=== PATIENT | female | born 1945 | race Caucasian/White ===

== ENCOUNTER 2017-06-20 13:27 | Inpatient (IN) | payer OTHER ==
--- NOTE | 2017-06-20 15:26 | ED.PDOC ---
General ED Provider: Dr. CHRISTINE SCHULER Chief Complaint: Abnormal Labs Stated Complaint: Here from skilled nursing; Has low Potassium as noted on lab today. K+ was 2.7. Experienced confusion. Time Seen by Physician: 14:50 Mode of Arrival: Stretcher Information Source: Patient, Mcc, EMT Exam Limitations: No limitations Primary Care Provider: WAYNE CARRASCO Referred to ED by: PCP Nursing and Triage Documentation Reviewed and Agree: Yes Reviewed sepsis parameters & appropriate labs ordered?: Yes System Inflammatory Response Syndrome: Not Applicable Sepsis Protocol: For patient's 13 years and over: Temp is 96.8 and below OR 101 and greater Pulse >90 BPM Resp >20/minute Acutely Altered Mental Status Are patient's symptoms suggestive of a new infection, such as: -Pneumonia -Skin, Soft Tissue -Endocarditis -UTI -Bone, Joint Infection -Implantable Device -Acute Abdominal Infection -Wound Infection -Meningitis -Blood Stream Catheter Infection -Unknown System Inflammatory Response Syndrome: Not Applicable Miscellaneous Complaint Exam - Complex/Multi-System Complaint/Exam Symptoms Are: Still present Episodes Lasting: Hours Associated Signs and Symptoms: Reports: Confusion, Dizziness, Palpitations, Anticoagulation Therapy Related History: Recent Hospitilization (Total Hip ) Recent Echo/LV Function: No Respiratory Distress: None JVD Present: No Tachypnea Present: No Stridor Present: No Abdominal Findings: Present: Normal findings Review of Systems - Review Of Systems Constitutional: Reports: No symptoms, Malaise, Weakness Eyes: Reports: No symptoms Ears, Nose, Mouth, Throat: Reports: No symptoms Respiratory: Reports: No symptoms Cardiac: Reports: No symptoms GI: Reports: No symptoms : Reports: No symptoms Musculoskeletal: Reports: No symptoms, Other (recent hip fracture) Skin: Reports: No symptoms Neurological: Reports: No symptoms Endocrine: Reports: No symptoms Hematologic/Lymphatic: Reports: No symptoms All Other Systems: Other (hypokalemia) Past Medical History - Past Medical History Previously Healthy: Yes Endocrine: Reports: None Cardiovascular: Reports: Hypertension, Unknown Respiratory: Reports: None Hematological: Reports: None Gastrointestinal: Reports: None Genitourinary: Reports: None Neuro/Psych: Reports: None Musculoskeletal: Reports: Joint Pain Cancer: Reports: None Last Menstrual Period: hysterectomy - Surgical History General Surgical History: Reports: Other (total hip; mult hip surgeries) - Family History Family History: Reports: None - Social History Smoking Status: Never smoker Hx Substance Use: No Alcohol Screening: None Physical Exam - Physical Exam Appearance: Well-appearing, Thin Ill-appearing: None Pain Distress: None Eyes: LAURA, EOMI, Conjunctiva clear ENT: Ears normal, Nose normal, Oropharynx normal Neck: Supple Respiratory: Airway patent, Breath sounds clear Cardiovascular: RRR, Pulses normal, No rub GI/: Soft, Nontender, No masses Musculoskeletal: Normal strength, No edema, Limited ROM (Rt Hip) Skin: Warm, Dry Neurological: Sensation intact, Alert, Oriented Psychiatric: Affect appropriate, Mood appropriate Re-Evaluation - Re-Evaluation Time of Re-Evaluation: 18:30 Status: Improved Vital Signs Stable: Yes Appearance: NAD Lungs: Clear Skin: Warm and Dry Neuro: Alert and Oriented X3 CV: RRR Additional Comments: Receiving IV KCL ; Could not tolerate PO KCL/ Dr Carrasco wishes to admit Critical Care Note - Critical Care Note Total Time (mins): 0 Course - Course Hematology/Chemistry: 06/20/17 15:41 06/20/17 15:41 Orders, Labs, Meds: Lab Review 06/20/17 06/20/17 15:41 15:41 WBC 12.01 H RBC 3.62 L Hgb 11.6 L Hct 33.2 L MCV 91.7 MCH 32.0 H MCHC 34.9 RDW Coeff of Kimberly 12.9 Plt Count 427 Immature Gran % (Auto) 1.2 Neut % (Auto) 80.5 Lymph % (Auto) 8.7 L [place] % (Auto) 7.6 Eos % (Auto) 1.7 Baso % (Auto) 0.3 Immature Gran # (Auto) 0.1 Neut # (Auto) 9.7 H Lymph # (Auto) 1.1 [place] # (Auto) 0.9 Eos # (Auto) 0.2 Baso # (Auto) 0.0 Sodium 139 Potassium 2.7 L* Chloride 90 L Carbon Dioxide 37 H Anion Gap 14.7 BUN 14 Creatinine 1.06 Estimated GFR (MDRD) 51.00 BUN/Creatinine Ratio 13.20 Glucose 116 H Calcium 8.6 Magnesium 1.8 Total Bilirubin 0.7 AST 71 H ALT 26 Alkaline Phosphatase 87 Total Protein 6.9 Albumin 2.7 L Globulin 4.2 Albumin/Globulin Ratio 0.64 Orders Category Date Time Status ADMIT PATIENT INPATIENT .TO MEDSURG (MONITORED BED) ADMISSION 06/20/17 18: 14 Active TELEMETRY MONITORING TELE CARE 06/20/17 18:15 Active IV [ED IV/MEDIPORT/POWERPORT] .ONCE EMERGENCY 06/20/17 15:28 Active CBC W/ AUTO DIFF Stat LAB 06/20/17 15:41 Completed CMP [COMPREHENSIVE METABOLIC PANEL] Stat LAB 06/20/17 15:41 Completed MAGNESIUM Stat LAB 06/20/17 15:41 Completed 0.9 % Sodium Chloride [Saline Flush] MEDS 06/20/17 15:28 Active 1 syr IVF PRN PRN Potassium Chloride [K-Dur] MEDS 06/20/17 16:57 Discontinued 20 meq PO ONCE STA Potassium Chloride [Potassium Chloride Premix Run] 10 MEDS 06/20/17 16:59 Discontinued meq Premix 100 ml Water 1 bag IV ONCE Medications Generic Name Dose Route Start Last Admin Trade Name Freq PRN Reason Stop Dose Admin Sodium Chloride 1 syr 06/20/17 15:28 06/20/17 17:24 Saline Flush IVF 1 syr PRN PRN Administration To flush IV Discontinued Medications Generic Name Dose Route Start Last Admin Trade Name Freq PRN Reason Stop Dose Admin Potassium Chloride 10 meq/ 100 mls @ 100 mls/hr 06/20/17 16:59 06/20/17 17:50 Sterile Water IV 06/20/17 17:58 50 mls/hr ONCE STA Administration Potassium Chloride 20 meq 06/20/17 16:57 06/20/17 17:35 K-Dur PO 06/20/17 16:58 Not Given ONCE STA Vital Signs: Temp Pulse Resp BP Pulse Ox 06/20/17 17:01 79 119/40 L 06/20/17 13:28 97.7 F 83 16 107/37 L 97 Departure - Departure Time of Disposition: 19:30 Disposition: ADMITTED INPATIENT Discharge Problem: Hypokalemia Condition: Fair Pt referred to PMD for follow-up: Yes IPMP verified?: No Allergies/Adverse Reactions: Allergies codeine Adverse Reaction (Verified 06/20/17 13:48) Penicillins Adverse Reaction (Verified 06/20/17 13:48) Home Medications: Ambulatory Orders Apixaban [Eliquis] 2.5 mg PO BID 06/20/17 Dicyclomine HCl 10 mg PO BID 06/20/17 Fexofenadine HCl 180 mg PO DAILY PRN 06/20/17 Fluoxetine HCl 20 mg PO DAILY 06/20/17 Furosemide [Lasix Tab] 20 mg PO QDAC 06/20/17 Metoprolol Tartrate 50 mg PO DAILY 06/20/17 Multivitamin [One Daily Multivitamin] 1 tab PO DAILY 06/20/17 Oxybutynin Chloride [Ditropan Xl] 15 mg PO DAILY 06/20/17 Oxycodone HCl [Oxycodone] 5 mg PO Q4H PRN 06/20/17 Paroxetine HCl 40 mg PO DAILY 06/20/17 Disposition Discussed With: Patient (Admit per Dr Carrasco)
[2017-06-20] MEDS ORDERED: K-DUR PO STA (16:57)
[2017-06-20] MEDS ORDERED: POTASSIUM CHLORIDE PREMIX RUN 10 MEQ in PREMIX 100 ML WATER 1 BAG IV STA (16:59)
[2017-06-20 20:42] VITALS: BMI 24.3
[2017-06-20] MEDS ORDERED: POTASSIUM CHL 10% ORAL SOL PO STA ×3 (21:04→23:21)
[2017-06-20] MEDS ORDERED: FEXOFENADINE HCL 180 MG PO PRN (21:18)
[2017-06-20] MEDS ORDERED: POTASSIUM CHLORIDE 20 MEQ VIAL-ADDITIVE ONLY IV ONE (21:19)
[2017-06-20] MEDS: SODIUM CHLORIDE IV SCH (21:28)
[2017-06-20] MEDS: POTASSIUM CHLORIDE IV SCH (21:28)
[2017-06-20] MEDS: ADDITIVE ONLY IV SCH (21:28)
[2017-06-20] MEDS: OXYCODONE PO PRN (21:51)
[2017-06-21] MEDS: OXYCODONE PO PRN ×3 (03:30→19:26)
[2017-06-21] MEDS ORDERED: POTASSIUM CHLORIDE 20 MEQ VIAL-ADDITIVE ONLY IV ONE (03:36)
[2017-06-21] MEDS: LASIX TAB PO SCH (06:35)
[2017-06-21] MEDS ORDERED: CLARITIN PO PRN (07:35)
[2017-06-21] MEDS: BENTYL PO SCH ×2 (08:33→21:03)
[2017-06-21] MEDS: DITROPAN XL PO SCH (08:33)
[2017-06-21] MEDS: MULTIVITAMIN TABLET PO SCH (08:34)
[2017-06-21] MEDS: PAXIL PO SCH (08:34)
[2017-06-21] MEDS: PROZAC PO SCH (08:34)
[2017-06-21] MEDS: ELIQUIS PO SCH ×2 (08:36→21:03)
[2017-06-21] MEDS ORDERED: NON-FORMULARY MEDICATION (Oxybutynin Chloride [Ditropan Xl] 15 MG) PO SCH (09:00)
[2017-06-21] MEDS ORDERED: LOPRESSOR PO SCH (09:00)
[2017-06-21] MEDS ORDERED: NON-FORMULARY MEDICATION (Apixaban [Eliquis] 2.5 MG) PO SCH (09:00)
[2017-06-21] MEDS ORDERED: PAROXETINE HCL 40 MG PO SCH (09:00)
--- NOTE | 2017-06-21 10:42 | PCM.PROG ---
Attending Provider: ATTENDING PROVIDER: Dr. WAYNE CARRASCO This patient is seen with Rosa Elena Franklin, Nurse Practitioner. DATE OF SERVICE: 06/21/17 SUBJECTIVE: This 72 year old WHITE/ F was hospitalized 06/20/17. The patient is lying in bed resting comfortably. The patient was sent from [facility] yesterday. She has started running low grade fever overnight. Potassium is improved. Will do further testing for fever today. REVIEW OF SYSTEMS: CONSTITUTIONAL: Low grade fever. Weakness. No night sweats. No malaise, lethargy. No chills. HEENT: Eyes: No visual changes. No eye pain. No eye discharge. ENT: No runny nose. No epistaxis. No sinus pain. No odynophagia. No congestion. RESPIRATORY: No cough, no congestion. No hemoptysis. No shortness of breath. CARDIOVASCULAR: No angina symptoms. No CHF symptoms. No atypical chest pain for CAD. No palpitations. No orthopnea.. GASTROINTESTINAL: No abdominal pain. No nausea or vomiting. No diarrhea or constipation. No hematemesis. No hematochezia. GENITOURINARY: No urgency. No frequency. No dysuria. No hematuria. No obstructive symptoms. No discharge. No pain. No significant abnormal bleeding. MUSCULOSKELETAL: No musculoskeletal pain; no joint swelling. NEUROLOGICAL: Awake, alert, oriented to time, place and person. No headache. No neck pain. No syncope. No seizures. No dizziness. PSYCHIATRIC: Not anxious. No depression. No suicidal thoughts. No homicidal thoughts. SKIN: No rash. No lesions. No wounds. ENDOCRINE: No unexplained weight loss. No weight gain. HEMATOLOGIC/LYMPHATIC: No anemia. No purpura. No petechiae. No prolonged or excessive bleeding. No palpable lymph nodes. PHYSICAL EXAMINATION: GENERAL: The patient is resting comfortably in bed in no distress. VITAL SIGNS: Temperature 99.4 F, Pulse 115, Respiratory Rate 16, BP 124/60, Pulse Ox 95% HEENT: Head normocephalic, atraumatic. Eyes: Extraocular muscles are intact. Pupils are equal, round and reactive to light and accommodation. Ears: No lesions. Nose appeared normal. Throat: No exudate or erythema. NECK: Supple. No JVD, no carotid bruit. No lymphadenopathy or thyromegaly. LUNGS: Diminished breath sounds. Clear to auscultation. Percussion note normal. Chest symmetrical. HEART: Sinus tachycardia. S1, S2, no S3. No murmurs. No cyanosis or clubbing. No ascites. Pulses: Dorsalis pedis and posterior tibial pulses +1 to +2 both sides. ABDOMEN: Soft. Non-tender. Bowel sounds active. No CVA tenderness. No mass felt. EXTREMITIES: No edema. Full range of motion of all extremities, equal. NEUROLOGIC: No focal deficit. Cranial nerves II through XII are grossly intact. No headache, no double vision or headache. SKIN: Not dry. Intact. Turgor-normal. LYMPHATIC: No palpable lymph nodes/no lymphedema. MUSCULOSKELETAL: Normal joints with no swelling. Muscle tone is normal. LAB REVIEW: 06/21/17 05:00 06/21/17 05:00 06/21/17 05:00: Sodium 139, Potassium 4.2, Chloride 96 L, Carbon Dioxide 35 H, Anion Gap 12.2, BUN 13, Creatinine 1.07, Estimated GFR (MDRD) 50.00, BUN/ Creatinine Ratio 12.14, Glucose 112, Calcium 8.6, Total Bilirubin 0.7, AST 67 H , ALT 26, Alkaline Phosphatase 79, Total Protein 6.2, Albumin 2.4 L, Globulin 3.8, Albumin/Globulin Ratio 0.63 06/21/17 05:00: WBC 9.21, RBC 3.41 L, Hgb 10.7 L, Hct 32.2 L, MCV 94.4, MCH 31.4 H, MCHC 33.2, RDW Coeff of Kimberly 13.0, Plt Count 417, Immature Gran % (Auto) 1.3, Neut % (Auto) 73.3, Lymph % (Auto) 12.2, [place] % (Auto) 8.8, Eos % (Auto) 4.1, Baso % (Auto) 0.3, Immature Gran # (Auto) 0.1, Neut # (Auto) 6.8, Lymph # ( Auto) 1.1, [place] # (Auto) 0.8, Eos # (Auto) 0.4, Baso # (Auto) 0.0 ASSESSMENT: 1. HALLUCINATIONS/MENTAL STATUS CHANGE 2. HYPOKALEMIA IMPROVED 3. FEVER 4. S/P LEFT HIP REPAIR PLAN: 1. Rapid flu 2. Blood cultures 3. UA 4. Chest x-ray 5. Bilateral venous scan Plan and coordination of the patient's care discussed in the presence of Triage Specialist and nurse. CONDITION: Stable SCRIBED BY: Jeovany PINEDA scribed while in presence of service performed by Dr. Carrasco/Rosa Elena Franklin APRN on 06/21/17 ([id number])
--- NOTE | 2017-06-21 11:03 | DI ---
Exam: Chest one-view History: Cough and shortness of breath FINDINGS: Normal cardiomediastinal contours. Normal pulmonary vasculature. Atherosclerotic calcifi cation of the aorta. No acute chest wall abnormality. Impression: No acute cardiopulmonary disease.
--- NOTE | 2017-06-21 14:54 | US ---
EXAM: Left lower extremity venous Doppler History: Left lower extremity pain and swelling with warmth Technique: Multiple sonographic images through the left lower extremity were obtained. Color duplex Doppler was used to interrogate vascular flow. Findings: The left common femoral, greater saphenous, profunda, superficial femoral, popliteal, larry carol, posterior tibial and anterior tibial veins demonstrate spontaneous flow with normal compression and normal augmentation. Impression: No sonographic evidence for deep venous thrombosis.
[2017-06-22] MEDS: OXYCODONE PO PRN ×5 (00:58→21:46)
[2017-06-22] MEDS ORDERED: GI COCKTAIL PO STA (04:44)
[2017-06-22] MEDS: POTASSIUM CHLORIDE IV SCH ×5 (04:54→23:07)
[2017-06-22] MEDS: ADDITIVE ONLY IV SCH ×5 (04:54→23:07)
[2017-06-22] MEDS: SODIUM CHLORIDE IV SCH ×5 (04:54→23:07)
[2017-06-22] MEDS: LASIX TAB PO SCH (05:31)
[2017-06-22] MEDS: PROTONIX PO SCH (08:26)
[2017-06-22] MEDS: LOPRESSOR PO SCH ×2 (08:40→17:29)
[2017-06-22] MEDS ORDERED: POTASSIUM CHL 10% ORAL SOL PO SCH (09:00)
[2017-06-22] MEDS ORDERED: LOPRESSOR PO SCH (09:00)
[2017-06-22] MEDS: MULTIVITAMIN TABLET PO SCH (09:50)
[2017-06-22] MEDS: DITROPAN XL PO SCH (09:51)
[2017-06-22] MEDS: BENTYL PO SCH ×2 (09:51→21:34)
[2017-06-22] MEDS: PROZAC PO SCH (09:53)
[2017-06-22] MEDS: PAXIL PO SCH (09:54)
[2017-06-22] MEDS: ELIQUIS PO SCH ×2 (09:57→21:34)
--- NOTE | 2017-06-22 15:21 | RS.OTINEVL ---
Subjective - Patient information Date of Evaluation: 06/22/17 Date of Arrival on Unit: 06/21/17 Admitted From:: Facility Transfer Diagnosis: Left hip surgery Usual Living Arrangement: Alone Living Arrangement Comments: Pt lives alone and is trying to get to move to [place]. 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 Pt is a stand pivot transfer. Interventions - ROM Right Upper Extremity AROM: WFL's Left Upper Extremity AROM: Slight limitation - Strength Right Upper Extremity Strength: Normal Left Upper Extremity Strength: Mild Weakness - Sensation Right Upper Extremity Sensation: Intact/Normal Comments:: Pt has intermittent tender point in the LUE scapula Balance - Sitting Balance Static Sitting Balance: Fair Dynamic Sitting Balance: Fair - Standing Balance Static Standing Balance: Fair Dynamic Standing Balance: Fair ADL Skills - Self Feeding Self Feeding: Independent - Grooming Grooming: Min Assist - Bathing Bathing UE: Supervision Bathing LE: Min Assist - Dressing Dressing UE: Independent Dressing LE: Mod Assist - Toilet Management Toileting Management: Mod Assist Functional Mobility - Bed Mobility Rolling R/L: Min Assist Scooting: Min Assist Supine to Sit: Min Assist Sit to Supine: Min Assist - Transfers Sit to Stand: Mod Assist Stand to Sit: Mod Assist Stand Pivot Transfers: Mod Assist, 2 person assist - Ambulation Weight Bearing Status: NWB Assistive Device Used: Rolling Walker Assistance needed with Ambulation: Mod Assist, 2 person assist - Safety Awareness Safety Awareness: Good ANNALISE INDEX SCORE: . Additional Treatment Performed - Time with patient Total treatment time: 20 Activities Patient Interests:: Reading Books/Magazines, Watching Television, Puzzles/Games Patient Education Patient Education: Education of diagnosis, Body/Joint mechanics, Home Exercise Program, Education of Plan of Care Teaching Recipient: Patient Teaching Methods: Discussion Assessment Problem List:: Decreased level of function, Requires training/education, Decreased safety/Risk of falls, Weakness Rehab Potential: Good Further Therapy Indicated?: Yes Evaluation Complexity: HISTORY: Medium, EXAM OF BODY SYSTEMS: Medium, CLINICAL DECISION MAKING: Medium Short Term Goals - Goals GOAL 1: Pt to complete supine to sit Minimal assistance. Goal to be met by: 06/29/17 GOAL 2: Pt to tolerate toilet transfers CGA with RW. Goal to be met by: 06/29/17 GOAL 3: Pt to complete self care CGA. Goal to be met by: 07/06/17 GOAL 4: Pt LUE shoulder sorenesss would decrease to 0/10. Veneer Taper Goals GOAL 1: Pt to complete supine to sit Minimal assistance. Goal to be met by: 07/06/17 GOAL 2: Pt to tolerate toilet transfers CGA with RW. Goal to be met by: 07/06/17 GOAL 3: Pt to complete self care Modified Ind. Goal to be met by: 07/06/17 Plan Plan of Care: Therapeutic EX, Neuromuscular Re-Educ, Therapeutic Activity, Self- Care/Home Management Modalities: Ultrasound, Ultrasound Combination, Electrical Stimulation Frequency of Treatment: 1-2 X day, as tolerated Duration of Treatment: 2 Weeks Anticipated [facility]charge Dest[facility] Has the Physician been added for Co-signature?: Yes
--- NOTE | 2017-06-22 15:32 | HP ---
DATE OF SERVICE: 06/20/17 REASON FOR HOSPITALIZATION/HISTORY OF PRESENT ILLNESS: 72 year old white female who is a new patient to us. She is a resident of [facility], she arrived there on 06/14/17 after having a complete left total hip replacement. The [facility] called and stated that she was experiencing some increasing confusion and hallucinations today and we have sent her to the emergency room for evaluation. PAST MEDICAL HISTORY: Anxiety Depression Hypertension Leg edema Dementia Urinary urgency Osteoarthritis PAST SURGICAL HISTORY: Hysterectomy Left total hip Right knee Cholecystectomy Hemorrhoidectomy Right hip REVIEW OF SYSTEMS: CONSTITUTIONAL: No night sweats. Malaise and weaknes. No fever or chills. HEENT: Eyes: No visual changes. No eye pain. No eye discharge. ENT: No runny nose. No epistaxis. No sinus pain. No sore throat. No odynophagia. No ear pain. No congestion. RESPIRATORY: No cough, no congestion. No hemoptysis. No shortness of breath. CARDIOVASCULAR: No angina symptoms. No CHF symptoms. No atypical chest pain for CAD. No palpitations. No orthopnea. GASTROINTESTINAL: No abdominal pain. No nausea or vomiting. No diarrhea or constipation. No hematemesis. No hematochezia. GENITOURINARY: No urgency. No frequency. No dysuria. No hematuria. No obstructive symptoms. No discharge. No pain. No significant abnormal bleeding. MUSCULOSKELETAL: No musculoskeletal pain. No joint swelling. No arthritis. NEUROLOGICAL: No headache. No neck pain. No syncope. No seizures. No dizziness. Confusion. PSYCHIATRIC: Not anxious. No depression. No suicidal thoughts. No homicidal thoughts. SKIN: No rash. No lesions. No wounds. Incision left hip otherwise normal. ENDOCRINE: No unexplained weight loss. No weight gain. HEMATOLOGIC/LYMPHATIC: No anemia. No purpura. No petechiae. No prolonged or excessive bleeding. No palpable lymph nodes. PERSONAL/FAMILY/SOCIAL HISTORY: The patient is single. She is a resident of the [facility] for rehabilitation. No alcohol and tobacco use. MEDICATIONS: Fluxetine 20mg PO daily Eliquis 2.5mg Po twice a day Paroxetine 40mg PO daily Metoprolol 50mg PO daily Oxycodone 5mg Po Q 4 hours PRN Fexofenadine 180mg PO daily PRN Dicyclomine 10mg PO twice a day Ditropan XL 15mg PO daily Multivitamin one tablet PO daily Lasix 20mg PO QDAC ALLERGIES: Codeine Penicillins PHYSICAL EXAMINATION: GENERAL: The patient is , lying/sitting in bed in no distress. VITAL SIGNS: Temperature 97.7, heart rate 83, blood pressure 107/37, pulse ox 97%. HEENT: Head normocephalic, atraumatic. Eyes: Extraocular muscles are intact. Pupils are equal, round and reactive to light and accommodation. Ears: No lesions. Nose appeared normal. Throat: No exudate or erythema. NECK: Supple. No JVD, no carotid bruit. No lymphadenopathy or thyromegaly. LUNGS: Diminished breath sounds bilaterally. Clear to auscultation. Percussion note normal. Chest symmetrical. HEART: S1, S2, no S3. No murmurs. No cyanosis or clubbing. No ascites. Pulses: Dorsalis pedis and posterior tibial pulses +1 to +2 both sides. Sinus tachycardia. ABDOMEN: Soft. Nontender. Bowel sounds active. No CVA tenderness. No mass felt. EXTREMITIES: No leg edema. Full range of motion of all extremities, equal. Deyvi intact posterior left hip, no signs, symptoms of infection. NEUROLOGIC: No focal deficit. Cranial nerves II through XII are grossly intact. No headache, no double vision or headache. SKIN: Not dry. Intact. Turgor - normal. LYMPHATIC: No palpable lymph nodes/no lymphedema. MUSCULOSKELETAL: Normal joints with no swelling. Muscle tone is normal. LABS: WBC 12.01, hgb 11.6, hct 33.2, plt count 427, sodium 139, potassium 2.7, chloride 90, carbon dioxide 37, BUN 14, creatinine 1.06, calcium 8.6, AST 71, ALT 26, Alkaline phosphatase 87, total protein 6.9. ASSESSMENT: 1. Acute hypokalemia status post left hip replacement 2. Fever 3. Acute confusion PLAN: 1. Admit as an inpatient 2. CBC and CMP daily 3. The patient is to have 4 rounds of 40meq and 500cc bags IV of Potassium 4. Routine Telemetry orders 5. Continue home medications 6. Due to fever will do U/A 7. Chest x-ray 8. Venous scan of both lower extremities 9. Blood cultures 10. Regular diet TIME SPENT: More than [address] [facility]
--- NOTE | 2017-06-22 15:53 | RS.PTINEVL ---
Subjective - Patient information Date of Evaluation: 06/22/17 Date of Arrival on Unit: 06/20/17 Admitted From:: Long Term Diagnosis: hypokalemia, s/p L hip acetabular reconstruction w patient matched implant Usual Living Arrangement: Alone Living Arrangement Comments: prior to surgery on 06/09/17 pt lived alone with some assist from friends and family. pt lives in split level home with 1 step into kitchen and 2 steps into living room. pt amb with rwx since first surgery 4 yrs ago. 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 on 01/14/12 Medications: see chart Subjective Information/ Patient Comments:: pt states she is having new pain in area of tibial plateau with min edema and bruising noted - Level of function Prior to this admission, the patient could do the following:: Partially Dependent Ambulation Abilities prior to this admission: prior to sx pt amb with rwx, since sx pt has only been able to transfer TWB on LLE Current Level of Function: Partially Dependent Current Equipment Used at Home: shower chair, raised chair, 2 walkers, Pain Assessement - Location L hip Description: Sharp, Aching Intensity: 6 Pain Behavior: Facial Grimacing Pain Aggravating Factors: Changing Position, Exercise/Activity Pain Alleviating Factors: Ice, Medication Interventions - Objective Patient Orientation: Person, Place, Time, Situation Current Interventions: IV's, Telemetry Observation: min edema LLE especially in area of tibial plateau. Range of Motion - ROM Right Upper Extremity AROM: WFL's Left Upper Extremity AROM: WFL's Right Lower Extremity AROM: WFL's Left Lower Extremity AROM: Moderate limitation (L hip limited due to THR precautions) Muscle Strength - Muscle Strength Right Upper Extremity Strength: Mild Weakness (grossly 4/5) Left Upper Extremity Strength: Mild Weakness (grossly 4/5) Right Lower Extremity Strength: Mild Weakness (hip flex 4/5, knee flex/ext 4+/5 , ankle DF/PF 4+/5) Left Lower Extremity Strength: Mild Weakness (L hip not MMT due to THR precautions, knee flex/ext atleast 3/5 as noted by ROM, not tested due to pain, ankle DF/PF 0/5 due to foot drop from previous sx) Sensation - Sensation Right Upper Extremity Sensation: Impaired (reports occasional n/t B hands longstanding) Left Upper Extremity Sensation: Impaired (reports occasional n/t B hands longstanding) Right Lower Extremity Sensation: Intact/Normal Left Lower Extremity Sensation: Impaired (n/t LLE) Palpation Palpation Findings: Tenderness Comments:: L tibial plateau Balance - Sitting Balance and Reactions Static Sitting Balance: Good Dynamic Sitting Balance: Good Sitting Equilibrium Reactions: Within Normal Limits Left, Within Normal Limit Right Sitting Protective Reactions: Within Normal Limits Left, Within Normal Limit Right - Standing Balance and Reactions Static Standing Balance: Fair Dynamic Standing Balance: Poor - Comments Balance Assessment Comments: pt able to maintain dyn sitting balance reaching across midline and to challenges to balance. pt also with no LOB while transferring maintaing TWB LLE (pt does NWB due to foot drop in L) Functional Mobility - Bed Mobility Rolling R/L: Mod Assist Supine to Sit: Mod Assist, 1 person assist - Transfers Sit to Stand: Min Assist, Mod Assist, 1 person assist Stand to Sit: Min Assist, 1 person assist Stand Pivot Transfers: Min Assist, Mod Assist, 1 person assist - Safety Awareness Safety Awareness: Good ANNALISE INDEX SCORE: n/a Ambulation - Ambulation Weight Bearing Status: TDWB/TTWB Assistive Device Used: Standard Walker Orthotic/Prosthetic Device: No Distance: 2-3 steps to chair, TWB LLE Assistance needed with Ambulation: Min Assist, 1 person assist Factors Affecting Ambulation: WB Status, Decreased Balance, Pain, Weakness, Limited Endurance Treatment time - Time with patient Total treatment time: 29 Patient Education - Education Patient Education: Home Exercise Program, Activity Modification, Education of Plan of Care Teaching Recipient: Patient Teaching Methods: Discussion, Demonstration (pt demonstrated understanding of TWB LLE) Assessment - Assessment Problem List:: Decreased level of function, Requires training/education, Decreased safety/Risk of falls, Weakness, Pain limits previous level of function Rehab Potential: Good Further Therapy Indicated?: Yes Evaluation Complexity: HISTORY: Medium (HTN, complicated ortho hx, THR), EXAM OF BODY SYSTEMS: Medium (pain, strength, balance, gait, endurance), CLINICAL PRESENTATION: Medium (evolving), CLINICAL DECISION MAKING: Medium Short Term Goals GOAL #1: pt demonstrate rolling and scooting in bed with CGA Goal to be met by: 06/25/17 GOAL #2: pt transfer sup to/from sit to/from stand with min x 1 Goal to be met by: 06/25/17 GOAL #3: pt transfer stand pivot to BSC/chair TWB LLE with min x 1 Goal to be met by: 06/25/17 GOAL #4: pt propell w/c 200ft using BUE and RLE to allow for improved mobility Goal to be met by: 06/25/17 Senior Living Goals GOAL #1: pt independent with rolling and scooting up in bed Goal to be met by: 06/28/17 GOAL #2: pt transfer sup to/from sit SBA, sit to/from stand CGA Goal to be met by: 06/28/17 GOAL #3: pt amb 10ft with wx TWB LLE with min x 1 to improve mobility in pt room. Goal to be met by: 06/28/17 Plan Plan of Care: Therapeutic EX, Therapeutic Activity Modalities: Cold Pack/Cryotherapy Other:: gait training STRICT TWB LLE/ EDUCATE ON STRICT THR PRECAUTIONS Frequency of Treatment: 1-2 X day, as tolerated Duration of Treatment: 6 days Anticipated Discharge Destination: [facility] Has the Physician been added for Co-signature?: Yes
[2017-06-22] MEDS: TORADOL IVP PRN (20:14)
[2017-06-23] MEDS: OXYCODONE PO PRN ×4 (05:43→22:05)
[2017-06-23] MEDS: PROTONIX PO SCH (05:43)
[2017-06-23] MEDS: LASIX TAB PO SCH (05:44)
[2017-06-23] MEDS: DITROPAN XL PO SCH (08:30)
[2017-06-23] MEDS: LOPRESSOR PO SCH ×2 (08:30→17:04)
[2017-06-23] MEDS: BENTYL PO SCH ×2 (08:30→21:55)
[2017-06-23] MEDS: MULTIVITAMIN TABLET PO SCH (08:30)
[2017-06-23] MEDS: PAXIL PO SCH (08:31)
[2017-06-23] MEDS: PROZAC PO SCH (08:31)
[2017-06-23] MEDS: ELIQUIS PO SCH ×2 (08:31→21:55)
--- NOTE | 2017-06-23 08:52 | PCM.PROG ---
Attending Provider: ATTENDING PROVIDER: Dr. WAYNE CARRASCO This patient is seen with Rosa Elena Franklin, Nurse Practitioner. DATE OF SERVICE: 06/22/17 SUBJECTIVE: This 72 year old WHITE/ F was hospitalized 06/20/17. Lying in bed, alert. Potassium improved today. Chest x-ray negative yesterday. She still had low grade fever last night. REVIEW OF SYSTEMS: CONSTITUTIONAL: Leg weakness. No night sweats. No fatigue, malaise, lethargy. No fever or chills. HEENT: Eyes: No visual changes. No eye pain. No eye discharge. ENT: No runny nose. No epistaxis. No sinus pain. No odynophagia. No congestion. RESPIRATORY: No cough, no congestion. No hemoptysis. No shortness of breath. CARDIOVASCULAR: No angina symptoms. No CHF symptoms. No atypical chest pain for CAD. No palpitations. No orthopnea.. GASTROINTESTINAL: Positive for heartburn last night. No abdominal pain. No nausea or vomiting. No diarrhea or constipation. No hematemesis. No hematochezia. GENITOURINARY: No urgency. No frequency. No dysuria. No hematuria. No obstructive symptoms. No discharge. No pain. No significant abnormal bleeding. MUSCULOSKELETAL: No musculoskeletal pain; no joint swelling. NEUROLOGICAL: Awake, alert, oriented to time, place and person. No headache. No neck pain. No syncope. No seizures. No dizziness. PSYCHIATRIC: Not anxious. No depression. No suicidal thoughts. No homicidal thoughts. SKIN: No rash. No lesions. Left hip incision. ENDOCRINE: No unexplained weight loss. No weight gain. HEMATOLOGIC/LYMPHATIC: No anemia. No purpura. No petechiae. No prolonged or excessive bleeding. No palpable lymph nodes. PHYSICAL EXAMINATION: GENERAL: The patient is awake, alert and oriented, lying in bed in no distress. VITAL SIGNS: Temperature 98.8 F, Pulse 91, Respiratory Rate 20, BP 125/71, Pulse Ox 97% HEENT: Head normocephalic, atraumatic. Eyes: Extraocular muscles are intact. Pupils are equal, round and reactive to light and accommodation. Ears: No lesions. Nose appeared normal. Throat: No exudate or erythema. NECK: Supple. No JVD, no carotid bruit. No lymphadenopathy or thyromegaly. LUNGS: Diminished breath sounds. Clear to auscultation. Percussion note normal. Chest symmetrical. HEART: S1, S2, no S3. No murmurs. No cyanosis or clubbing. No ascites. Pulses: Dorsalis pedis and posterior tibial pulses +1 to +2 both sides. ABDOMEN: Soft. Non-tender. Bowel sounds active. No CVA tenderness. No mass felt. EXTREMITIES: No edema. Full range of motion of all extremities, equal. Negative Dylan's sign. NEUROLOGIC: No focal deficit. Cranial nerves II through XII are grossly intact. No headache, no double vision or headache. SKIN: Warm, dry. Turgor-normal. Left hip incision clean, dry and intact. No sign of infection. LYMPHATIC: No palpable lymph nodes/no lymphedema. MUSCULOSKELETAL: Normal joints with no swelling. Muscle tone is normal. LAB REVIEW: 06/22/17 05:30 06/22/17 05:30 06/22/17 05:30: Sodium 138, Potassium 4.5, Chloride 96 L, Carbon Dioxide 34 H, Anion Gap 12.5, BUN 16, Creatinine 1.17, Estimated GFR (MDRD) 45.00, BUN/ Creatinine Ratio 13.67, Glucose 105, Calcium 8.8, Total Bilirubin 0.5, AST 71 H , ALT 33, Alkaline Phosphatase 81, Total Protein 5.9, Albumin 2.3 L, Globulin 3.6, Albumin/Globulin Ratio 0.64 06/22/17 05:30: WBC 8.26, RBC 3.30 L, Hgb 10.2 L, Hct 31.7 L, MCV 96.1, MCH 30.9 , MCHC 32.2, RDW Coeff of Kimberly 13.1, Plt Count 409, Immature Gran % (Auto) 2.2, Neut % (Auto) 69.0, Lymph % (Auto) 13.7, [place] % (Auto) 8.1, Eos % (Auto) 6.5, Baso % (Auto) 0.5, Immature Gran # (Auto) 0.2, Neut # (Auto) 5.7, Lymph # (Auto ) 1.1, [place] # (Auto) 0.7, Eos # (Auto) 0.5, Baso # (Auto) 0.0 06/21/17 12:35: Influ A Molecular Assay Negative by naat, Influ B Molecular Assay Negative by naat ASSESSMENT: 1. HALLUCINATIONS/MENTAL STATUS CHANGE, RESOLVED 2. GERD 3. TACHYCARDIA 4. HYPOKALEMIA IMPROVED 5. FEVER 6. S/P LEFT HIP REPAIR PLAN: 1. Protonix 40 mg daily 2. UA today 3. Lopressor 25 b.i.d. Plan and coordination of the patient's care discussed in the presence of Health Tech and nurse. CONDITION: Stable SCRIBED BY: TAYLOR ZARATE Mobile Ui Developer scribed while in presence of service performed by Dr. Carrasco/Rosa Elena Franklin APRN on 06/22/17 ([id number])
--- NOTE | 2017-06-23 10:41 | PN ---
DATE OF SERVICE: 06/22/17 SUBJECTIVE: A workup for low grade fever and so far it is negative. The patient's U/A still pending. The patient's left hip scar and incision looks clear. No evidence of infection. No evidence of thrombophlebitis. The patient has left foot drop for last 6 years. The patient had hip surgery by Dr. Weiner 6-7 years ago. The left hip was done again by Dr. Myriam Marques three years ago and then again reoperated a couple of weeks ago by Dr. Myriam Marques. The patient developed complication from that and has developed foot drop. The patient cardiovascular status is stable with no evidence of CHF. The patient was seen and examined with Nurse practitioner. TIME SPENT: More than 30 minutes. Plan and coordination of the patient's care discussed in the presence of nurse. JOSEPHINE
[2017-06-23] MEDS: TORADOL IVP PRN ×2 (10:43→19:15)
--- NOTE | 2017-06-23 11:00 | PCM.PROG ---
Attending Provider: ATTENDING PROVIDER: Dr. WAYNE CARRASCO DATE OF SERVICE: 06/23/17 SUBJECTIVE: This 72 year old WHITE/ F was hospitalized 06/20/17. The patient is seen today, hypokalemia has resolved. Incision is clean, measures a foot long left hip area posteriorly with no evidence of any redness or drainage and is dry. No pain at all in the hip area. The pain is in left bautista area. She has pain off and on with history of left foot drop. REVIEW OF SYSTEMS: CONSTITUTIONAL: No night sweats. No fatigue, malaise, lethargy. No fever or chills. HEENT: Eyes: No visual changes. No eye pain. No eye discharge. ENT: No runny nose. No epistaxis. No sinus pain. No odynophagia. No congestion. RESPIRATORY: No cough, no congestion. No hemoptysis. No shortness of breath. CARDIOVASCULAR: No angina symptoms. No CHF symptoms. No atypical chest pain for CAD. No palpitations. No orthopnea.. GASTROINTESTINAL: No abdominal pain. No nausea or vomiting. No diarrhea or constipation. No hematemesis. No hematochezia. GENITOURINARY: No urgency. No frequency. No dysuria. No hematuria. No obstructive symptoms. No discharge. No pain. No significant abnormal bleeding. MUSCULOSKELETAL: No musculoskeletal pain; no joint swelling. NEUROLOGICAL: Awake, alert, oriented to time, place and person. No headache. No neck pain. No syncope. No seizures. No dizziness. PSYCHIATRIC: Not anxious. No depression. No suicidal thoughts. No homicidal thoughts. SKIN: No rash. No lesions. Incision left hip area. ENDOCRINE: No unexplained weight loss. No weight gain. HEMATOLOGIC/LYMPHATIC: No anemia. No purpura. No petechiae. No prolonged or excessive bleeding. No palpable lymph nodes. PHYSICAL EXAMINATION: GENERAL: The patient is awake, alert and oriented, lying in bed in no distress. VITAL SIGNS: Temperature 98.4 F, Pulse 77, Respiratory Rate 16, BP 108/59, Pulse Ox 95% HEENT: Head normocephalic, atraumatic. Eyes: Extraocular muscles are intact. Pupils are equal, round and reactive to light and accommodation. Ears: No lesions. Nose appeared normal. Throat: No exudate or erythema. NECK: Supple. No JVD, no carotid bruit. No lymphadenopathy or thyromegaly. LUNGS: Clear to auscultation. Percussion note normal. Chest symmetrical. HEART: S1, S2, no S3. No murmurs. No cyanosis or clubbing. No ascites. Pulses: Dorsalis pedis and posterior tibial pulses +1 to +2 both sides. ABDOMEN: Soft. Non-tender. Bowel sounds active. No CVA tenderness. No mass felt. EXTREMITIES: No edema. Full range of motion of all extremities, equal. NEUROLOGIC: No focal deficit. Cranial nerves II through XII are grossly intact. No headache, no double vision or headache. SKIN: Warm and dry. Intact. Turgor-normal. Incision left hip area is clean, dry and intact. No drainage, no sign of infection. LYMPHATIC: No palpable lymph nodes/no lymphedema. MUSCULOSKELETAL: Normal joints with no swelling. Muscle tone is normal. LAB REVIEW: 06/23/17 04:30 06/23/17 04:30 06/23/17 04:30: Sodium 137, Potassium 5.2 H, Chloride 96 L, Carbon Dioxide 34 H , Anion Gap 12.2, BUN 24 H, Creatinine 1.48 H, Estimated GFR (MDRD) 35.00, BUN/ Creatinine Ratio 16.21, Glucose 100, Calcium 8.9, Total Bilirubin 0.5, AST 61 H , ALT 30, Alkaline Phosphatase 81, Total Protein 5.8, Albumin 2.3 L, Globulin 3.5, Albumin/Globulin Ratio 0.66 06/23/17 04:30: WBC 6.82, RBC 3.19 L, Hgb 9.9 L, Hct 30.5 L, MCV 95.6, MCH 31.0 , MCHC 32.5, RDW Coeff of Kimberly 12.8, Plt Count 391, Immature Gran % (Auto) 2.6, Neut % (Auto) 61.5, Lymph % (Auto) 17.0, [place] % (Auto) 10.1 H, Eos % (Auto) 8.2 H, Baso % (Auto) 0.6, Immature Gran # (Auto) 0.2, Neut # (Auto) 4.2, Lymph # ( Auto) 1.2, [place] # (Auto) 0.7, Eos # (Auto) 0.6, Baso # (Auto) 0.0 06/22/17 16:50: Urine Color Yellow, Urine Clarity Clear, Urine pH 7.0, Ur Specific [employer] 1.015, Urine Protein Negative, Urine Glucose (UA) Negative, Urine Ketones Negative, Urine Blood Negative, Urine Nitrite Negative, Urine Bilirubin Negative, Urine Urobilinogen 0.2, Ur Leukocyte Esterase Negative ASSESSMENT: 1. MILD ANEMIA 2. HYPOKALEMIA IS BETTER 2. CHRONIC KIDNEY DISEASE, STAGE 3 3. CARDIOVASCULAR STATUS IS STABLE. VITAL SIGNS STABLE. CLAY: 1. Discontinue oral potassium 2. Advised the patient not to take nonsteroidals or antinflammatories. Plan and coordination of the patient's care discussed in the presence of Experience Design Director and nurse. CONDITION: Stable SCRIBED BY: TAYLOR ZARATE Concaver scribed while in presence of service performed by Dr. WAYNE CARRASCO on 06/23/17 ([id number])
[2017-06-24] MEDS: LASIX TAB PO SCH (06:12)
[2017-06-24] MEDS: PROTONIX PO SCH (06:12)
[2017-06-24] MEDS: BENTYL PO SCH ×2 (10:18→20:28)
[2017-06-24] MEDS: LOPRESSOR PO SCH ×2 (10:18→18:26)
[2017-06-24] MEDS: DITROPAN XL PO SCH (10:19)
[2017-06-24] MEDS: ELIQUIS PO SCH ×2 (10:19→20:28)
[2017-06-24] MEDS: MULTIVITAMIN TABLET PO SCH (10:23)
[2017-06-24] MEDS: PAXIL PO SCH (10:23)
[2017-06-24] MEDS: PROZAC PO SCH (10:24)
[2017-06-24] MEDS: OXYCODONE PO PRN ×4 (10:25→22:49)
[2017-06-25] MEDS: PROTONIX PO SCH (05:33)
[2017-06-25] MEDS: LASIX TAB PO SCH (05:33)
[2017-06-25] MEDS: OXYCODONE PO PRN ×4 (05:34→20:37)
[2017-06-25] MEDS: DITROPAN XL PO SCH (08:40)
[2017-06-25] MEDS: BENTYL PO SCH ×2 (08:40→20:37)
[2017-06-25] MEDS: PROZAC PO SCH (08:41)
[2017-06-25] MEDS: ELIQUIS PO SCH ×2 (08:41→20:37)
[2017-06-25] MEDS: PAXIL PO SCH (08:41)
[2017-06-25] MEDS: MULTIVITAMIN TABLET PO SCH (08:53)
[2017-06-25] MEDS: LOPRESSOR PO SCH ×2 (08:54→17:02)
[2017-06-26] MEDS: OXYCODONE PO PRN ×4 (04:09→22:47)
[2017-06-26] MEDS: PROTONIX PO SCH (05:41)
[2017-06-26] MEDS: LASIX TAB PO SCH (05:41)
--- NOTE | 2017-06-26 09:38 | PCM.PROG ---
Attending Provider: ATTENDING PROVIDER: Dr. WAYNE CARRASCO This patient is seen with Rosa Elena Franklin, Nurse Practitioner. DATE OF SERVICE: 06/26/17 SUBJECTIVE: This 72 year old WHITE/ F was hospitalized 06/20/17. Alert and oriented. The patient has had slight dizziness at standing. Blood pressure been running low. Lopressor for tachycardia will decrease due to hypotension. REVIEW OF SYSTEMS: CONSTITUTIONAL: No night sweats. No fatigue, malaise, lethargy. No fever or chills. HEENT: Eyes: No visual changes. No eye pain. No eye discharge. ENT: No runny nose. No epistaxis. No sinus pain. No odynophagia. No congestion. RESPIRATORY: No cough, no congestion. No hemoptysis. No shortness of breath. CARDIOVASCULAR: No angina symptoms. No CHF symptoms. No atypical chest pain for CAD. No palpitations. No orthopnea.. GASTROINTESTINAL: No abdominal pain. No nausea or vomiting. No diarrhea or constipation. No hematemesis. No hematochezia. GENITOURINARY: No urgency. No frequency. No dysuria. No hematuria. No obstructive symptoms. No discharge. No pain. No significant abnormal bleeding. MUSCULOSKELETAL: No musculoskeletal pain; no joint swelling. Left hip pain. NEUROLOGICAL: Awake, alert, oriented to time, place and person. No headache. No neck pain. No syncope. No seizures. Dizziness. PSYCHIATRIC: Not anxious. No depression. No suicidal thoughts. No homicidal thoughts. SKIN: No rash. No lesions. No wounds. ENDOCRINE: No unexplained weight loss. No weight gain. HEMATOLOGIC/LYMPHATIC: No anemia. No purpura. No petechiae. No prolonged or excessive bleeding. No palpable lymph nodes. PHYSICAL EXAMINATION: GENERAL: The patient is awake, alert and oriented, lying/sitting in bed in no distress. VITAL SIGNS: Temperature 98.6 F, Pulse 79, Respiratory Rate 16, BP 94/54, Pulse Ox 92% HEENT: Head normocephalic, atraumatic. Eyes: Extraocular muscles are intact. Pupils are equal, round and reactive to light and accommodation. Ears: No lesions. Nose appeared normal. Throat: No exudate or erythema. NECK: Supple. No JVD, no carotid bruit. No lymphadenopathy or thyromegaly. LUNGS: Diminished breath sounds. Clear to auscultation. Percussion note normal. Chest symmetrical. HEART: S1, S2, no S3. No murmurs. No cyanosis or clubbing. No ascites. Pulses: Dorsalis pedis and posterior tibial pulses +1 to +2 both sides. ABDOMEN: Soft. Non-tender. Bowel sounds active. No CVA tenderness. No mass felt. EXTREMITIES: No edema. Full range of motion of all extremities, equal. Left hip valeriy intake with no signs of infection. NEUROLOGIC: No focal deficit. Cranial nerves II through XII are grossly intact. No headache, no double vision or headache. SKIN: Not dry. Intact. Turgor-normal. LYMPHATIC: No palpable lymph nodes/no lymphedema. MUSCULOSKELETAL: Normal joints with no swelling. Muscle tone is normal. LAB REVIEW: 06/26/17 06:18 06/26/17 06:18 06/26/17 06:18: Sodium 136, Potassium 4.6, Chloride 97 L, Carbon Dioxide 32 H, Anion Gap 11.6, BUN 24 H, Creatinine 1.41 H, Estimated GFR (MDRD) 37.00, BUN/ Creatinine Ratio 17.02, Glucose 105, Calcium 8.8, Total Bilirubin 0.4, AST 54 H , ALT 26, Alkaline Phosphatase 90, Total Protein 6.1, Albumin 2.3 L, Globulin 3.8, Albumin/Globulin Ratio 0.61 06/26/17 06:18: WBC 5.60, RBC 3.10 L, Hgb 9.6 L, Hct 29.3 L, MCV 94.5, MCH 31.0 , MCHC 32.8, RDW Coeff of Kimberly 12.6, Plt Count 371, Immature Gran % (Auto) 0.9, Neut % (Auto) 65.8, Lymph % (Auto) 13.0, [place] % (Auto) 12.1 H, Eos % (Auto) 7.7 H, Baso % (Auto) 0.5, Immature Gran # (Auto) 0.1, Neut # (Auto) 3.7, Lymph # ( Auto) 0.7, [place] # (Auto) 0.7, Eos # (Auto) 0.4, Baso # (Auto) 0.0 ASSESSMENT: Please see below. 1. Status post left hip repair 2. Hypokalemia 3. Hypotension PLAN: 1. Decrease Lopressor 12.5 twice a day 2. Will monitor blood pressure Plan and coordination of the patient's care discussed in the presence of Salt Refiner and nurse. SCRIBED BY: Jeovany CHATTERJEE scribed while in presence of service performed by Dr. Carrasco/Rosa Elena Franklin APRN on 06/26/17 ([id number])
[2017-06-26] MEDS: PROZAC PO SCH (10:09)
[2017-06-26] MEDS: PAXIL PO SCH (10:09)
[2017-06-26] MEDS: DITROPAN XL PO SCH (10:10)
[2017-06-26] MEDS: MULTIVITAMIN TABLET PO SCH (10:10)
[2017-06-26] MEDS: BENTYL PO SCH ×2 (10:16→21:05)
[2017-06-26] MEDS: ELIQUIS PO SCH ×2 (10:17→21:05)
[2017-06-26] MEDS: LOPRESSOR PO SCH ×2 (12:30→18:27)
[2017-06-27] MEDS: LASIX TAB PO SCH (06:11)
[2017-06-27] MEDS: PROTONIX PO SCH (06:11)
[2017-06-27] MEDS: OXYCODONE PO PRN ×2 (06:11→13:43)
[2017-06-27] MEDS: BENTYL PO SCH (09:23)
[2017-06-27] MEDS: LOPRESSOR PO SCH (09:24)
[2017-06-27] MEDS: PROZAC PO SCH (09:24)
[2017-06-27] MEDS: PAXIL PO SCH (09:24)
[2017-06-27] MEDS: DITROPAN XL PO SCH (09:24)
[2017-06-27] MEDS: MULTIVITAMIN TABLET PO SCH (09:24)
[2017-06-27] MEDS: ELIQUIS PO SCH (09:25)
[2017-06-27] MEDS: TORADOL IVP PRN (09:25)
--- NOTE | 2017-06-27 09:40 | PCM.PROG ---
Attending Provider: ATTENDING PROVIDER: Dr. WAYNE CARRASCO This patient is seen with Rosa Elena Franklin, Nurse Practitioner. DATE OF SERVICE: 06/27/17 SUBJECTIVE: This 72 year old WHITE/ F was hospitalized 06/20/17. The patient is lying in bed, alert. She has been eating and drinking well. She is ready to be discharged back to [facility] today. REVIEW OF SYSTEMS: CONSTITUTIONAL: No night sweats. No fatigue, malaise, lethargy. No fever or chills. HEENT: Eyes: No visual changes. No eye pain. No eye discharge. ENT: No runny nose. No epistaxis. No sinus pain. No odynophagia. No congestion. RESPIRATORY: No cough, no congestion. No hemoptysis. No shortness of breath. CARDIOVASCULAR: No angina symptoms. No CHF symptoms. No atypical chest pain for CAD. No palpitations. No orthopnea.. GASTROINTESTINAL: No abdominal pain. No nausea or vomiting. No diarrhea or constipation. No hematemesis. No hematochezia. GENITOURINARY: No urgency. No frequency. No dysuria. No hematuria. No obstructive symptoms. No discharge. No pain. No significant abnormal bleeding. MUSCULOSKELETAL: Left hip pain and weakness. NEUROLOGICAL: Awake, alert, oriented to time, place and person. No headache. No neck pain. No syncope. No seizures. No dizziness. PSYCHIATRIC: Not anxious. No depression. No suicidal thoughts. No homicidal thoughts. SKIN: No rash. No lesions. Deyvi to left hip. ENDOCRINE: No unexplained weight loss. No weight gain. HEMATOLOGIC/LYMPHATIC: No anemia. No purpura. No petechiae. No prolonged or excessive bleeding. No palpable lymph nodes. PHYSICAL EXAMINATION: GENERAL: The patient is awake, alert and oriented, lying in bed in no distress. VITAL SIGNS: Temperature 99.0 F, Pulse 77, Respiratory Rate 16, BP 103/56, Pulse Ox 100% HEENT: Head normocephalic, atraumatic. Eyes: Extraocular muscles are intact. Pupils are equal, round and reactive to light and accommodation. Ears: No lesions. Nose appeared normal. Throat: No exudate or erythema. NECK: Supple. No JVD, no carotid bruit. No lymphadenopathy or thyromegaly. LUNGS: Clear to auscultation. Percussion note normal. Chest symmetrical. HEART: S1, S2, no S3. No murmurs. No cyanosis or clubbing. No ascites. Pulses: Dorsalis pedis and posterior tibial pulses +1 to +2 both sides. ABDOMEN: Soft. Non-tender. Bowel sounds active. No CVA tenderness. No mass felt. EXTREMITIES: No edema. Full range of motion of all extremities, equal. NEUROLOGIC: No focal deficit. Cranial nerves II through XII are grossly intact. No headache, no double vision or headache. SKIN: Warm and dry. Intact. Turgor-normal. [place] are intact left hip, no signs of infection. LYMPHATIC: No palpable lymph nodes/no lymphedema. MUSCULOSKELETAL: Normal joints with no swelling. Muscle tone is normal. LAB REVIEW: 06/26/17 06:18 06/26/17 06:18 ASSESSMENT: Please see below. 1. Status post left hip repair 2. Hypokalemia resolved 3. Acute confusion resolved PLAN: 1. Discharge back to intermediate 2. CBC, CMP before discharge 3. CBC, CMP in one week 4. Continue medications that she is currently on 5. Potassium 10 mEq daily 6. Encourage the patient to drink plenty of fluids Plan and coordination of the patient's care discussed in the presence of Footwear Stitcher and nurse. CONDITION: Stable SCRIBED BY: Camacho PINEDAist scribed while in presence of service performed by Dr. Carrasco/Rosa Elena Franklin APRN on 06/27/17 ([id number])
[2017-06-27 10:58] VITALS: BP 114/72; TEMP 97.6
--- NOTE | 2017-06-27 11:05 | CM.DICTOOL ---
ADMISSION: 06/20/17 18:21 DISCHARGE: 06/27/17 FINAL DIAGNOSIS HYPOKALEMIA - RESOLVED ACUTE CONFUSION - RESOLVED RECENT LEFT HIP ARTHROPLASTY, 06/09/17 -LILLIAN FLU SYNDROME MENTAL STATUS CHANGES HALLUCINATIONS DEMENTIA HISTORY OF: HYPERTENSION GERD STRESS INCONTINENCE DEPRESSION/ANXIETY UTERINE CANCER S/P HYSTERECTOMY, 1985 CHOLECYSTECTOMY HEMORRHOIDECTOMY RIGHT KNEE ARTHROPLASTY, 2016 LAST VITALS Temp Pulse Resp BP Pulse Ox 99.0 F 77 16 103/56 L 100 06/27/17 06:00 06/27/17 06:00 06/27/17 06:00 06/27/17 06:00 06/27/17 06:00 ACTIVE HOME MEDICATIONS Apixaban (Eliquis) 2.5 mg PO BID [facility] Last Admin: 06/27/17 09:25 Dose: 2.5 mg Dicyclomine HCl (Bentyl) 10 mg PO BID [facility] Last Admin: 06/27/17 09:23 Dose: 10 mg Fluoxetine HCl (Prozac) 20 mg PO DAILY [facility] Last Admin: 06/27/17 09:24 Dose: 20 mg Furosemide (Lasix Tab) 20 mg PO QDAC [facility] Last Admin: 06/27/17 06:11 Dose: 20 mg Loratadine (Claritin) 10 mg PO DAILY PRN Reason: ALLERGIES Metoprolol Tartrate (Lopressor) 12.5 mg PO BIDWM [facility] Last Admin: 06/27/17 09:24 Dose: 12.5 mg Multivitamins (Multivitamin Tablet) 1 tab PO DAILY [facility] Last Admin: 06/27/17 09:24 Dose: 1 tab Oxybutynin Chloride (Ditropan Xl) 15 mg PO DAILY [facility] Last Admin: 06/27/17 09:24 Dose: 15 mg Oxycodone HCl (Oxycodone) 5 mg PO Q4H PRN PRN Reason: Analgesia Last Admin: 06/27/17 06:11 Dose: 5 mg Pantoprazole Sodium (Protonix) 40 mg PO QDAC [facility] Last Admin: 06/27/17 06:11 Dose: 40 mg Paroxetine HCl (Paxil) 40 mg PO DAILY [facility] Last Admin: 06/27/17 09:24 Dose: 40 mg ALLERGIES codeine Adverse Reaction (Verified 06/20/17 13:48) Penicillins Adverse Reaction (Verified 06/20/17 13:48) NEW PRESCRIPTIONS: NEW MEDICATIONS: 1. CLARITIN 10MG PO DAILY 2. PROTONIX 40MG PO DAILY 3. K+ 10MEQ PO DAILY SMOKING: N/A DISEASE SPECIFIC EDUCATION: MEDICATIONS ACTIVITY INCREASE FLUIDS HYPOKALEMIA LAB REVIEW: 06/27/17 07:45 06/27/17 07:45 06/27/17 07:45: Sodium 138, Potassium 4.4, Chloride 98, Carbon Dioxide 34 H, Anion Gap 10.4, BUN 18, Creatinine 1.16, Estimated GFR (MDRD) 46.00, BUN/ Creatinine Ratio 15.51, Glucose 102, Calcium 8.9, Total Bilirubin 0.3, AST 49 H , ALT 21, Alkaline Phosphatase 99, Total Protein 6.3, Albumin 2.4 L, Globulin 3.9, Albumin/Globulin Ratio 0.62 06/27/17 07:45: WBC 5.16, RBC 3.10 L, Hgb 9.6 L, Hct 29.2 L, MCV 94.2, MCH 31.0 , MCHC 32.9, RDW Coeff of Kimberly 12.4, Plt Count 377, Immature Gran % (Auto) 1.2, Neut % (Auto) 61.9, Lymph % (Auto) 17.1, Brooks % (Auto) 11.6 H, Eos % (Auto) 7.6 H, Baso % (Auto) 0.6, Immature Gran # (Auto) 0.1, Neut # (Auto) 3.2, Lymph # ( Auto) 0.9, Brooks # (Auto) 0.6, Eos # (Auto) 0.4, Baso # (Auto) 0.0 PLAN: DISCHARGE BACK TO [facility] TODAY 06/27/17. CONTINUE HOME MEDICATIONS PER NURSING SHEET EXCEPT: 1. DISCONTINUE FEXOFENODINE HCL 2. DECREASE METOPROLOL TO 12.5MG PO BID NEW MEDICATIONS: 1. CLARITIN 10MG PO DAILY 2. PROTONIX 40MG PO DAILY 3. K+ 10MEQ PO DAILY DIET: REGULAR. INCREASE FLUIDS. ACTIVITY: TOE TOUCH WEIGHT BEARING WITH LEFT LOWER EXTREMITY. CBC AND CMP IN 1 WEEK. PT/OT TO EVALUATE AND TREAT. KEEP YOUR APPOINTMENT WITH DR. Myriam CARRASCO ON 07/07/17 AT 10:50AM. FOLLOW UP WITH Skyla HALE APRN ON [facility] ROUNDS. PATIENT IS A FULL CODE. SITTING UP IN BED. ALERT AND ORIENTED X 4. Skyla HALE APRN INTO SEE PATIENT. PATIENT STATES DOING BETTER. Skyla DAMON APRN DISCUSSED PLAN OF CARE INCLUDING RETURN TO [facility] TODAY. PATIENT STATES SHE IS READY AND AGREEABLE. VITAL SIGNS ARE STABLE. HAD 99.0 TEMP AT 6AM. POX 100% ON ROOM AIR. HEART TONES ARE REGULAR. NO C/O PAIN OR DISCOMFORT. LUNGS CLEAR. NO COUGH NOTED. ABDOMEN IS SOFT, NON-TENDER WITH BOWEL SOUNDS POSITIVE IN ALL 4 QUADS. LAST BM 06/26/17. INCONTINENT OF BLADDER AT TIMES. PEDAL PULSES ARE POSITIVE WITH NON-PITTING EDEMA TO LEFT LOWER EXTREMITY. LEFT LOWER EXTREMITY HAS MILD WEAKNESS. HAS LEFT FOOT DROP. LEFT HIP INCISION IS WELL APPROXIMATED WITH 41 KEVIN INTACT. HAS SMALL AMOUNT OF SEROUS DRAINAGE NOTED. SPECIMEN OBTAINED AND TAKEN TO LAB FOR ANALYSIS. LEGS ELEVATED ON PILLOW. HAS SALINE LOCK IN RIGHT HAND SITE IS CLEAR. IS FALL RISK WITH FALL PRECAUTIONS IN USE. IS A MODERATE ASSIST OF 2 WITH USE OF STANDARD WALKER. HAS UNSTEADY/SLOW GAIT. NO ACUTE DISTRESS NOTED. DR. WAYNE CARRASCO MD Skyla HALE APRN
--- NOTE | 2017-06-29 13:36 | PN ---
DATE OF SERVICE: 06/24/17 SUBJECTIVE: 72-year-old white female feeling good. The patient's hypokalemia has resolved. The patient's potassium is 5.2, creatinine 1.4, BUN 24. Hemoglobin 9.9 with hematocrit of 30.5, stable. The patient says she is feeling a lot better. She had left lower extremity pain, which is much better. Toradol seems to be helping. The patient has footdrop with neuropathy. The patient's incision is healing well. She has 42 valeriy on the left hip area posteriorly with a foot long incision with no evidence of drainage, infection, or inflammation. It is dry. The patient has no weight bearing Physical Therapy. Stable cardiovascular status. The patient's appetite is good, feeling a lot better. No confusion. CONDITION: Stable TIME SPENT: More than 30 minutes. Plan and coordination of the patient's care discussed in the presence of nurse. JOSEPHINE
--- NOTE | 2017-06-29 15:55 | DS ---
DATE OF SERVICE: 06/27/17 FINAL DIAGNOSIS: 1. Hypokalemia, resolved 2. Acute confusion, resolved 3. Recent left hip arthroplasty, 06/09/17- [place] 4. Flu syndrome 5. Mental status changes 6. Hallucination 7. Dementia 8. History of hypertension 9. History of GERD 10.History of Stress incontinence 11.History of Depression/Anxiety 12.History of Uterine Cancer status post Hysterectomy, 1984 13.Cholecystectomy 14.Hemorrhoidectomy 15.Right knee arthroplasty, 2015 LAST VITALS: Temperature 99, pulse 77, respiratory rate 16, blood pressure 103/56 and pulse ox 100. DISCHARGE INSTRUCTIONS: Discharge back to [facility] today 06/27/17. PT/OT to evaluate and treat. Keep appointment with Dr. Myriam Marques on 07/07/17 at 10:50am. Followup with Tariq CAMACHO on [facility] rounds. CBC and CMP in one week. MEDICATIONS AT DISCHARGE: Eliquis 2.5mg PO twice a day Bentyl 10mg PO twice a day Prozac 20mg PO daily Lasix 20mg PO QDAC Claritin 10mg PO daily Lopressor 12.5mg PO twice a day Multivitamin one tablet PO daily Ditropan XL 15mg PO daily Oxycodone 5mg PO Q 4 hours PRN Protonix 40mg PO QDAC Paxil 40mg PO daily ALLERGIES: Codeine Penicillins NEW PRESCRIPTIONS: Claritin 10mg PO daily Protonix 40mg Po daily Potassium 10meq PO daily DIET INSTRUCTIONS: Regular. Increase fluids ACTIVITY: Toe touch weight bearing with left lower extremity. SMOKING: N/A DISEASE SPECIFIC EDUCATION: Medications Activity Increase fluids Hypokalemia HOSPITAL COURSE: This is a 72 year old white female who is a current patient of ours at [facility] after recently undergoing left hip arthroplasty on 06/09/17. She was brought to the emergency room after experiencing acute confusion, hypotension at the correction. Upon evaluation at the ER her potassium was down to 2.4. CT of the head showed that it was normal. Her kidney function was slightly elevated indicating mild dehydration. She was admitted. U/ A was normal showing no signs or symptoms of urinary tract infection. She did run low grade fever initially although chest x-ray was normal, U/A was normal and fluids normal. This was all thought to be post op low grade temperature. She was admitted and given 4 runs of IV 40meq Potassium in her IV fluids, continue on her home medications and Eliquis. Her valeriy on her posterior left hip are clean, dry and intake with no signs or symptoms of infections. There is no drainage. We did give her Toradol 30mg IV Q 8 hours as needed for pain. She was somewhat tachycardiac on admission into the 120's and 114. We started her on Lopressor 25mg twice a day, this helped improve he heart rate however her blood pressure did drop into the 90's over 50's so we backed off and did 12.5mg twice a day that she will go back to the correction on. She is on Lasix 20mg daily but had not been on Potassium prior to admission here. Her Potassium is normalized. The first 24 hours given 20meq of Potassium twice a day and then this was decreased down to 10meq of Potassium daily. She will go on this dose of Potassium daily at the correction and continue on this. Today she is discharged in stable condition. Kidney function is improved and Potassium is normal at 4.6. Vital signs are stable heart rate 77, respiratory rate 16, blood pressure 103/56 and pulse ox 100%. She has been up and about with assistance. She is discharged in stable condition and we will followup with her at the correction. TIME SPENT: More than 60 minutes. JOSEPHINE
--- NOTE | 2017-06-30 08:33 | PN ---
DATE OF SERVICE: 06/26/17 SUBJECTIVE: 72-year-old white female hospitalized with hypokalemia which has resolved. The patient also had low grade fever with possibility of flu syndrome. The patient' s condition has improved. Her incision looks clear. She has followup appointment with Dr. Myriam Marques on 07/07/17. The patient is on no weight-bearing for now. Potassium is normal which is 4.6. CONDITION: Stable The patient was seen with the nurse practitioner. TIME SPENT: More than 30 minutes. Plan and coordination of the patient's care discussed in the presence of nurse. JOESPHINE
--- NOTE | 2017-06-30 08:38 | PN ---
DATE OF SERVICE: 06/27/17 SUBJECTIVE: 72-year-old white female hospitalized with hypokalemia, dehydration, and flu type of symptoms. The patient's condition is improved. Her left hip placement, which was done by Dr. Myriam Marques seems to be doing well with incision being clean which is like a foot long incision. No evidence of drainage. No redness. The patient is not to have weight bearing. [facility]. TIME SPENT: More than 30 minutes. Plan and coordination of the patient's care discussed in the presence of nurse. JOSEPHINE
--- NOTE | 2017-06-30 08:40 | PN ---
CODING FOR BILLING 06/20/17 LEVEL 5 06/21/17 INTERMEDIATE 06/22/17 INTERMEDIATE 06/23/17 INTERMEDIATE 06/24/17 INTERMEDIATE 06/25/17 BRIEF 06/26/17 BRIEF 06/27/17 DISCHARGE MTDD
== END 2017-06-27 13:55 | DRG 641 ==
LOC: ED 13:27 → MEDSURG B 18:21
PROVIDERS: ADMIT Internal Medicine; ATTEND Internal Medicine
DX: E87.6 Hypokalemia (principal); R44.3 Hallucinations, unspecified; M96.89 Other intraoperative and postprocedural complications and disorders of the musculoskeletal system; M21.372 Foot drop, left foot; R41.0 Disorientation, unspecified; R42 Dizziness and giddiness; R50.9 Fever, unspecified; J11.1 Influenza due to unidentified influenza virus with other respiratory manifestations; F03.90 Unspecified dementia, unspecified severity, without behavioral disturbance, psychotic disturbance, mood disturbance, and anxiety; I10 Essential (primary) hypertension; K21.9 Gastro-esophageal reflux disease without esophagitis; N39.3 Stress incontinence (female) (male); F41.8 Other specified anxiety disorders; R00.0 Tachycardia, unspecified; N18.3 Chronic kidney disease, stage 3 (moderate); D64.9 Anemia, unspecified; I95.1 Orthostatic hypotension; Z96.642 Presence of left artificial hip joint; Z98.890 Other specified postprocedural states; Z79.01 Long term (current) use of anticoagulants; Z79.899 Other long term (current) drug therapy; Z85.42 Personal history of malignant neoplasm of other parts of uterus
CPT/HCPCS: 36415; 80053; 81001; 83735; 85025; 87040; 87070; 87081; 87186; 87502; 93005; 93010; 96365; 99284